=== PATIENT | female | born 1955 | race Caucasian/White ===

== ENCOUNTER 2019-09-05 12:21 | Outpatient (CLI) | payer OTHER, SELFPAY ==
--- NOTE | ~2019-09-05 | DEXA_ITS ---
Bone Density Report Name: Dana Morrow Age: 64 Sex: Female Ethnicity: White Date of : 1955 Indication: postmenopausal; height loss; Referring Provider: Peter, Radha Ambriz Study: Bone densitometry was performed. Exam Date: September 05, 2019 Accession number: [id number] Bone Density: Region BMD T-score Z-score Classification AP Spine (L1-L4) 1.229 1.7 3.4 Normal Femoral Neck (Left) 0.866 0.2 1.6 Normal Total Hip (Left) 1.096 1.3 2.4 Normal Total Hip Bilateral Avg 1.002 0.5 1.7 Normal Femoral Neck (Right) 0.827 -0.2 1.3 Normal Total Hip (Right) 0.907 -0.3 0.9 Normal World Health Organization criteria for BMD impression classify patients as: Normal (T-score at or above -1.0), Osteopenia (T-score between -1.0 and -2.5), or Osteoporosis (T-score at or below -2.5). 10-year Fracture Risk: FRAX not reported because: All T-scores for Spine Total, Hip Total, Femoral Neck at or above -1.0 Clinical Information Provided by Patient: Patient maximum height was 62.5 Menopause Age: 50 Drinks caffeinated beverages Onset of menses at age 13 Number of children 2 Impression: The patient has normal bone mass. Discussion: BONE DENSITY IS ABOVE THE MINIMUM DESIRABLE LEVEL AT ALL SKELETAL SITES TESTED. This patient?s bone mineral density is above the minimum desirable level (T-score -1.0 or better) at all sites measured. The patient should follow a healthful lifestyle (good nutrition with adequate calcium and vitamin D, and appropriate weight-bearing exercise). Follow-Up: Consider repeating this study in 5 years or sooner if there is some new clinical indication. Reported by: [facility] on 09/05/2019 1:26:00 PM. Reviewed, dictated and finalized at location A. [facility]
--- NOTE | ~2019-09-05 | MMUS_ITS ---
EXAMINATION: MM diagnostic mammo unilat RT, US breast RT limited HISTORY: New asymmetry in upper outer quadrant of right breast on 08/12/2019 screening mammogram TECHNIQUE: Additional 3-D tomosynthesis images of the right breast were performed and synthetic 2-D i mages were generated. CAD analysis was submitted and interpreted. High resolution targeted upper oute r quadrant right breast ultrasound was performed. COMPARISON: 08/12/2019 bilateral digital screening mammogram FINDINGS: MAMMOGRAPHIC FINDINGS: There is a persistent asymmetric up to 10-12 mm area of ill-defined density situated posteriorly in t he mid to upper outer right breast. Ultrasound correlation was obtained. ULTRASOUND: At 9:00 5 cm from the nipple there is an approximately 6.2 x 7.9 x 6.5 mm antiparallel hypoechoic mas s with posterior shadowing. This mass is suspicious. Ultrasound-guided biopsy is recommended. IMPRESSION: 1. Suspicious shadowing up to approximately 7.9 mm mass at 9:00 5 cm from nipple, corresponding to ne w asymmetric mammographic opacity at same location. 2. Ultrasound-guided biopsy is recommended for 9:00 mass BI-RADS category 4, suspicious findings. Jerry Avila telephoned the report and ultrasound guided biopsy recommendation for right 9:00 breast mass to Brayan Medinajas on 09/05/2019 at 1432 hours. Reviewed, dictated and finalized at location A. [facility] IMPRESSION: 1. Suspicious shadowing up to approximately 7.9 mm mass at 9:00 5 cm from nippl e, corresponding to new asymmetric mammographic opacity at same location. 2. Ultrasound-guided biopsy is recommended for 9:00 mass BI-RADS category 4, suspicious findings. Jerry Avila telephoned the report and ultrasound guided biopsy recommendation for right 9:00 breast mass to Brayan Medinajas on 09/05/2019 at 1432 hours. IMPRESSION: 1. Suspicious shadowing up to approximately 7.9 mm mass at 9:00 5 cm from nippl e, corresponding to new asymmetric mammographic opacity at same location. 2. Ultrasound-guided biopsy is recommended for 9:00 mass BI-RADS category 4, suspicious findings. Jerry Avila telephoned the report and ultrasound guided biopsy recommendation for right 9:00 breast mass to Brayan Le on 09/05/2019 at 1432 hours.
== END 2019-09-05 12:22 | disposition home or self-care (01) ==
PROVIDERS: PCP Family Medicine; Referring Provider Physician Assistant; Visit Provider Nurse Practitioner Obstetrics & Gynecology
DX: R92.8 Other abnormal and inconclusive findings on diagnostic imaging of breast (principal); Z78.0 Asymptomatic menopausal state
CPT/HCPCS: 76642; 77065; 77080

== ENCOUNTER 2022-01-24 16:02 | Outpatient (CLI) | payer OTHER, SELFPAY ==
--- NOTE | ~2022-01-24 | XR_ITS ---
EXAM: XR facial bones min 3V DATE: 01/24/2022 16:42 HISTORY: pt went face first into glass door x today. Swelling to nose . COMPARISON: None available. FINDINGS: Decreased mineralization. Calcification/ossification of the falx. No definite acute fractu re or dislocation. Aerated spaces are clear. The orbits are intact and symmetric. Hyperostosis fronta lis. IMPRESSION: No definite acute osseous finding in the bones of the face. Reviewed, dictated and finalized at location K.
== END 2022-01-24 16:03 | disposition home or self-care (01) ==
PROVIDERS: PCP Family Medicine; Visit Provider Physician Assistant
DX: J34.89 Other specified disorders of nose and nasal sinuses (principal); M85.88 Other specified disorders of bone density and structure, other site
CPT/HCPCS: 70150

== ENCOUNTER 2022-09-12 16:51 | Outpatient (CLI) | payer OTHER, SELFPAY ==
--- NOTE | ~2022-09-12 | DEXA_ITS ---
Bone Density Report Name: QUANG CARDOZA Age: 67 Sex: Female Ethnicity: White Date of : 1955 Indication: postmenopausal; screening for osteoporosis; height loss; cancer; Referring Provider: ESCOBAR, FRANCIA Ambriz Study: Bone densitometry was performed. Exam Date: September 12, 2022 Accession number: [id number] Bone Density: Region BMD T-score Z-score Classification AP Spine(L1-L4) 1.112 0.6 2.5 Normal Femoral Neck (Left) 0.802 -0.4 1.2 Normal Total Hip (Left) 0.995 0.4 1.8 Normal Femoral Neck (Right) 0.774 -0.7 1.0 Normal Total Hip (Right) 0.880 -0.5 0.8 Normal Total Hip Mean 0.937 -0.1 1.3 Normal World Health Organization criteria for BMD impression classify patients as: Normal (T-score at or above -1.0), Osteopenia (T-score between -1.0 and -2.5), or Osteoporosis (T-score at or below -2.5). 10-year Fracture Risk: FRAX not reported because: All T-scores for Spine Total, Hip Total, Femoral Neck at or above -1.0 Clinical Information Provided by Patient: Has used the following medications: Vitamin D, Anastrozole Has the following medical conditions: Cancer Patient maximum height was 62 Menopause Age: 50 Drinks caffeinated beverages Onset of menses at age 14 Number of children 2 Impression: The patient has normal bone mass. Discussion: BONE DENSITY IS ABOVE THE MINIMUM DESIRABLE LEVEL AT ALL SKELETAL SITES TESTED. This patient?s bone mineral density is above the minimum desirable level (T-score -1.0 or better) at all sites measured. The patient should follow a healthful lifestyle (good nutrition with adequate calcium and vitamin D, and appropriate weight-bearing exercise). Follow-Up: Consider repeating this study in 5 years or sooner if there is some new clinical indication. Reported by: [facility] on 09/12/2022 5:36:00 PM. Reviewed, dictated and finalized at location AMarielle GARSIA
== END 2022-09-12 16:52 | disposition home or self-care (01) ==
PROVIDERS: PCP Family Medicine; Visit Provider Nurse Practitioner Obstetrics & Gynecology
DX: Z78.0 Asymptomatic menopausal state (principal)
CPT/HCPCS: 77080

== ENCOUNTER 2022-10-16 16:22 | Outpatient (CLI) | payer MEDICARE, SELFPAY ==
--- NOTE | ~2022-10-16 | XR_ITS ---
EXAMINATION: XR chest 2V Exam Date/Time: 10/16/2022 16:30 CDT HISTORY: COUGH X 1 MONTH, HX OF BRONCHITIS Comparison: None available. RESULT: Lines, tubes, and devices: None. Lungs and pleura: Calcified left upper lung granuloma. Right hemidiaphragm eventration. Cardiomediastinal silhouette: Calcified hilar/mediastinal nodes, otherwise unremarkable. Other: No acute osseous or upper abdominal finding. IMPRESSION: No acute cardiopulmonary process. Reviewed, dictated and finalized at location K.
== END 2022-10-16 16:23 | disposition home or self-care (01) ==
LOC: ANHIMG 16:26
PROVIDERS: PCP Family Medicine; Visit Provider Physician Assistant
DX: R05.9 Cough, unspecified (principal); J06.9 Acute upper respiratory infection, unspecified
CPT/HCPCS: 71046

== ENCOUNTER 2023-07-03 07:07 | Outpatient (CLI) | payer MEDICARE, SELFPAY ==
[2023-07-03 08:06] LABS: Cholesterol 255 mg/dL (0-200); HDL Direct 81 mg/dL; Triglycerides 50 mg/dL (<150)
[2023-07-03 08:16] LABS: LDL Cholesterol Direct 122 mg/dL
== END 2023-07-03 07:08 | disposition home or self-care (01) ==
PROVIDERS: PCP Family Medicine; Visit Provider Family Medicine
DX: E78.2 Mixed hyperlipidemia (principal)
CPT/HCPCS: 36415; 80061

== ENCOUNTER 2023-12-22 07:06 | Outpatient (CLI) | payer MEDICARE, SELFPAY ==
[2023-12-22 08:08] LABS: Hematocrit 45.5 % (37.0-47.0); Hemoglobin 14.7 g/dL (12.0-15.0); Mean Corpuscular HGB Conc 32.3 g/dl (32-36); Mean Corpuscular Hemoglobin 27.9 pg (26-34); Mean Corpuscular Volume 86.5 fl (80-100); Mean Platelet Volume 10.9 fl (7.4-10.4); Platelet Count Result 372 k/mm3 (150-375); Red Blood Count 5.26 M/mm3 (4.2-5.4); Red Cell Distribution Width 12.8 % (11.5-14.5); White Blood Count 5.7 K/mm3 (4.5-10.0)
[2023-12-22 08:11] LABS: Appearance Urine Clear (Clear); Bilirubin Urine Negative (Negative); Blood Urine Negative (Negative); Color Urine Yellow (Yellow); Glucose Urine UA Negative (Negative); Ketones Urine Negative (Negative); Leukocyte Esterase Ur Negative LEU/UL (Negative); Nitrate Urine Negative (Negative); Protein Urine Negative (Negative); Specific Grav Ur 1.008 (1.001-1.035); Urobilinogen Urine 0.2 mg/dL (<2.0)
[2023-12-22 08:32] LABS: Alanine Aminotransferase 19 U/L (6-35); Albumin Level 4.4 g/dL (3.5-5.1); Alkaline Phosphatase 79 U/L (38-126); Anion Gap 4 mmol/L (4-12); Aspartate Amino Transferase 33 U/L (14-36); Bilirubin,Total 0.6 mg/dL (0.2-1.3); Blood Urea Nitrogen 18 mg/dL (7-17); Calcium 9.4 mg/dL (8.4-10.2); Carbon Dioxide 29 mmol/L (22-30); Chloride 106 mmol/L (98-107); Cholesterol 233 mg/dL (0-200); Estimated Glomerular Filt Rate > 60; Glucose 92 mg/dL (65-110); HDL Direct 91 mg/dL; Potassium 4.2 mmol/L (3.4-5.0); Sodium 139 mmol/L (137-145); Triglycerides 59 mg/dL (<150)
[2023-12-22 08:40] LABS: LDL Cholesterol Direct 123 mg/dL
[2023-12-22 08:56] LABS: Thyroid Stimulating Hormone 0.458 uIU/mL (0.465-4.680)
[2023-12-22 09:29] LABS: Add Urine Microscopic? NO
[2023-12-22 11:57] LABS: Hemoglobin A1C 5.3 % (<5.7)
== END 2023-12-22 07:07 | disposition home or self-care (01) ==
PROVIDERS: PCP Family Medicine; Visit Provider Physician Assistant
DX: E78.5 Hyperlipidemia, unspecified (principal); R73.01 Impaired fasting glucose
CPT/HCPCS: 36415; 80053; 80061; 81003; 83036; 84443; 85027

== ENCOUNTER 2024-02-08 11:55 | Outpatient (CLI) | payer MEDICARE, SELFPAY ==
--- NOTE | ~2024-02-08 | US_ITS ---
EXAMINATION: US soft tissue UE LT DATE: 02/08/2024 12:14 INDICATION: Left upper arm pain, lump and bruising TECHNIQUE: Multiple grayscale and Doppler ultrasound images of the region of concern at the anterior left upper arm were obtained. COMPARISON: None FINDINGS: There is a complex fluid collection within the imaged muscle belly which given the reported positioni ng along the anterior upper arm would be consistent with biceps. Per discussion with the mission commander imaging location was proximal to the mid point of the upper arm just below the level of the deltoid. On the cine images obtained in the transverse plane there is interruption of the normal architecture of a portion of the muscle belly as it reaches the fluid collection. There is also no evident retract ed tendon suggesting this is an intramuscular tear or tear along the myotendinous junction as opposed to a proximal or distal tendon tear. The remainder of the muscle demonstrates a continuous normal pa ttern of intact and taut-appearing muscle fibers. This would be consistent with a moderate grade musc le strain. IMPRESSION: 1. Moderate grade biceps brachii strain/partial tear. Reviewed, dictated and finalized at location B.
== END 2024-02-08 11:56 ==
LOC: GOSHIMG 11:56
PROVIDERS: PCP Family Medicine; Visit Provider Physician Assistant
DX: M79.622 Pain in left upper arm (principal); R22.32 Localized swelling, mass and lump, left upper limb; S49.92XA Unspecified injury of left shoulder and upper arm, initial encounter; X58.XXXA Exposure to other specified factors, initial encounter
CPT/HCPCS: 76882

== ENCOUNTER 2024-04-26 07:11 | Outpatient (CLI) | payer MEDICARE, SELFPAY ==
[2024-04-26 07:42] LABS: Alanine Aminotransferase 20 U/L (6-35); Albumin Level 4.5 g/dL (3.5-5.1); Alkaline Phosphatase 88 U/L (38-126); Anion Gap 7 mmol/L (4-12); Aspartate Amino Transferase 31 U/L (14-36); Bilirubin,Total 0.6 mg/dL (0.2-1.3); Blood Urea Nitrogen 15 mg/dL (7-17); Calcium 9.7 mg/dL (8.4-10.2); Carbon Dioxide 30 mmol/L (22-30); Chloride 100 mmol/L (98-107); Cholesterol 193 mg/dL (0-200); Estimated Glomerular Filt Rate > 60; Glucose 101 mg/dL (65-110); HDL Direct 90 mg/dL; Potassium 4.2 mmol/L (3.4-5.0); Sodium 137 mmol/L (137-145); Triglycerides 55 mg/dL (<150)
[2024-04-26 08:05] LABS: LDL Cholesterol Direct 73 mg/dL
[2024-04-26 08:11] LABS: Thyroid Stimulating Hormone 0.485 uIU/mL (0.465-4.680); Total Triiodothyronine (T3) 1.38 NG/ML (0.97-1.69)
[2024-04-26 09:36] LABS: Free T4 Free Thyroxine 1.17 ng/mL (0.78-2.19)
== END 2024-04-26 07:12 | disposition home or self-care (01) ==
LOC: ANHLAB 07:14
PROVIDERS: PCP Family Medicine; Visit Provider Physician Assistant
DX: E78.5 Hyperlipidemia, unspecified (principal); R73.01 Impaired fasting glucose; R79.89 Other specified abnormal findings of blood chemistry
CPT/HCPCS: 36415; 80053; 80061; 84439; 84443; 84480

== ENCOUNTER 2025-01-22 10:15 | Outpatient (CLI) | payer MEDICARE, SELFPAY ==
--- NOTE | ~2025-01-22 | DEXA_ITS ---
Bone Density Report Name: QUANG CARDOZA Age: 69 Sex: Female Ethnicity: White Date of : 1955 Indication: postmenopausal; screening for osteoporosis; Referring Provider: MOMO HONEYUCTT Study: Bone densitometry was performed. Exam Date: January 22, 2025 Accession number: [id number] Bone Density: Region BMD T-score Z-score Classification AP Spine(L1-L4) 1.035 -0.1 2.0 Normal Femoral Neck (Left) 0.694 -1.4 0.4 Osteopenia Total Hip (Left) 0.906 -0.3 1.2 Normal Femoral Neck (Right) 0.683 -1.5 0.3 Osteopenia Total Hip (Right) 0.831 -0.9 0.6 Normal Total Hip Mean 0.868 -0.6 0.9 Normal World Health Organization criteria for BMD impression classify patients as: Normal (T-score at or above -1.0), Osteopenia (T-score between -1.0 and -2.5), or Osteoporosis (T-score at or below -2.5). 10-year Fracture Risk(1): Major Osteoporotic Fracture 9.6% Hip Fracture 1.3% Reported Risk Factors: [place] (), Neck BMD=0.683, BMI=29.3 (1) FRAX(R) Version 3.08. Fracture probability calculated for an untreated patient. Fracture probability may be lower if the patient has received treatment. Previous Exams: -- Region Exam Age BMD T-score BMD Change BMD Change Date g/cm2 vs Baseline vs Previous -- AP Spine (L1-L4) 01/22/2025 69 1.035 -0.1 -6.9%* -6.9%* 09/12/2022 67 1.112 0.6 Total Hip(Left) 01/22/2025 69 0.906 -0.3 -9.0%* -9.0%* 09/12/2022 67 0.995 0.4 Total Hip(Right) 01/22/2025 69 0.831 -0.9 -5.5%* -5.5%* 09/12/2022 67 0.880 -0.5 -- *Denotes significance at 95% confidence level, LSC for AP Spine = 0.022 g/cm2, LSC for Total Hip = 0.027 g/cm2 Clinical Information Provided by Patient: Has used the following medications: Vitamin D Patient maximum height was 62.5 Menopause Age: 50 Drinks caffeinated beverages Onset of menses at age 13 Number of children 2 Impression: The patient has low bone mass, based on the Right Femoral Neck T-score. The patient has an estimated ten-year risk of hip fracture of 1.3% and an estimated ten-year risk of major fracture of 9.6%, based on the WHO FRAX algorithm. The BMD for the AP Spine (L1-L4) decreased, changing by -6.9% since the last DXA exam. The BMD for the Total Hip(Left) decreased, changing by -9.0% since the last DXA exam. The BMD for the Total Hip(Right) decreased, changing by -5.5% since the last DXA exam. Discussion: BONE DENSITY IS LOW AT ONE OR MORE SKELETAL SITES. This patient's lowest T-score is low at one or more skeletal sites. It meets the World Health Organization's (WHO) criteria for ?low bone mass? (T-score between -1.0 and -2.5). The patient's 10-year risk of fracture as calculated by FRAX is less than the threshold where pharmacological therapy is recommended by the National Osteoporosis Foundation (NOF). However, all treatment decisions require clinical judgment and consideration of individual patient factors, including patient preferences, comorbidities, previous drug use, risk factors not captured in the FRAX model (e.g., frailty, falls, vitamin D deficiency, increased bone turnover, interval significant decline in bone density) and possible under or overestimation of fracture risk by FRAX. The patient should follow a healthful lifestyle (good nutrition with adequate calcium and vitamin D, and appropriate weight-bearing exercise). Follow-Up: Consider repeating this study in 2 years to reassess this patient's status, or sooner if there is some new clinical indication. Reported by: ONEL on 01/22/2025 10:40:00 AM. Reviewed, dictated and finalized at location A.
== END 2025-01-22 10:16 | disposition home or self-care (01) ==
LOC: MICIMG 10:16
PROVIDERS: PCP Family Medicine; Visit Provider Obstetrics & Gynecology
DX: M85.89 Other specified disorders of bone density and structure, multiple sites (principal); Z78.0 Asymptomatic menopausal state; Z13.820 Encounter for screening for osteoporosis
CPT/HCPCS: 77080